=== PATIENT | male | born 1955 | race Two or more races ===

== ENCOUNTER → 2017-12-31 | Outpatient (CLI) | payer OTHER | LOC: M LRY 13:06 | DX: M51.36 Other intervertebral disc degeneration, lumbar region (principal) | CPT/HCPCS: 72114 ==

== ENCOUNTER → 2018-01-20 | Outpatient (REF) | payer OTHER ==
[2018-01-20 15:38] LABS: BASO % 0.5 % (0.0-1.0); EOS # 0.1 10^3/uL (0.0-0.50); EOS % 1.2 % (0.0-3.0); HEMATOCRIT 42.7 % (42.0-52.0); IMMATURE GRANULOCYTE % 0.2 % (0-3.0); LYMPH # 1.8 10^3/uL (1.5-4.5); MEAN CORPUSCULAR HGB CONC 32.8 g/dl (32.0-36.5); MEAN CORPUSCULAR VOLUME 91.4 fl (80.0-96.0); MONO # 0.4 10^3/uL (0.0-0.8); MONO % 10.3 % (0.0-5.0); NEUTROPHILS # 1.8 10^3/uL (1.8-7.7); NEUTROPHILS % 43.8 % (36.0-66.0); PLATELET COUNT, AUTOMATED 213 10^3/uL (150-450); RED BLOOD COUNT 4.67 10^6/uL (4.30-6.10); RED CELL DISTRIBUTION WIDTH 13.2 % (11.5-14.5); WHITE BLOOD COUNT 4.2 10^3/uL (4.0-10.0)
[2018-01-20 15:53] LABS: ALBUMIN/GLOBULIN RATIO 1.29 (1.00-1.93); ALKALINE PHOSPHATASE 66 U/L (45-117); ALT/SGPT 26 U/L (12-78); ANION GAP 7 MEQ/L (8-16); AST/SGOT 19 U/L (7-37); BILIRUBIN,TOTAL 0.8 MG/DL (0.2-1.0); BLOOD UREA NITROGEN 9 MG/DL (7-18); CALCIUM LEVEL 8.8 MG/DL (8.8-10.2); CARBON DIOXIDE LEVEL 28 MEQ/L (21-32); CHLORIDE LEVEL 105 MEQ/L (98-107); CHOLESTEROL LEVEL 234 MG/DL (<200); CHOLESTEROL RISK RATIO 3.656 (<5); CREATININE FOR GFR 0.93 MG/DL (0.70-1.30); GLOMERULAR FILTRATION RATE > 60.0 (>49); GLUCOSE, FASTING 108 MG/DL (70-100); HDL CHOLESTEROL 64 MG/DL (>40); LDL CHOLESTEROL 151.4 MG/DL (<100); NON-HDL-C 170 MG/DL; POTASSIUM SERUM 4.1 MEQ/L (3.5-5.1); PROSTATIC SPECIFIC AG MONITOR 3.51 NG/ML (< 4.0); SODIUM LEVEL 140 MEQ/L (136-145); TOTAL PROTEIN 7.1 GM/DL (6.4-8.2); TRIGLYCERIDES LEVEL 93 MG/DL (<150)
[2018-01-20 16:10] LABS: ESTIMATED AVERAGE GLUCOSE 134 MG/DL (60-110); HEMOGLOBIN A1c 6.3 %
== END ==
LOC: M LAB REF 14:33
DX: Z13.0 Encounter for screening for diseases of the blood and blood-forming organs and certain disorders involving the immune mechanism (principal)

== ENCOUNTER → 2018-09-28 | Outpatient (REF) | payer OTHER ==
[~2018-09-28] MED LIST: ADVI200C5 PO; METF500T13 PO; NEXI20CA PO; PRIL20TA2 PO
[2018-09-28 20:31] LABS: ALT/SGPT 30 U/L (12-78); BILIRUBIN,TOTAL 0.4 MG/DL (0.2-1.0); BLOOD UREA NITROGEN 13 MG/DL (7-18); CALCIUM LEVEL 8.2 MG/DL (8.8-10.2); CARBON DIOXIDE LEVEL 30 MEQ/L (21-32); CHLORIDE LEVEL 105 MEQ/L (98-107); CHOLESTEROL LEVEL 228 MG/DL (<200); CHOLESTEROL RISK RATIO 4.145 (<5); CREATININE FOR GFR 0.85 MG/DL (0.70-1.30); GLOMERULAR FILTRATION RATE > 60.0 (>49); GLUCOSE, FASTING 115 MG/DL (70-100); HDL CHOLESTEROL 55 MG/DL (>40); LDL CHOLESTEROL 144 MG/DL (<100); NON-HDL-C 173 MG/DL; POTASSIUM SERUM 3.8 MEQ/L (3.5-5.1); SODIUM LEVEL 140 MEQ/L (136-145); TOTAL PROTEIN 6.8 GM/DL (6.4-8.2); TRIGLYCERIDES LEVEL 143 MG/DL (<150)
[2018-09-28 20:32] LABS: BASO % 0.4 % (0.0-1.0); EOS # 0.1 10^3/uL (0.0-0.50); EOS % 1.2 % (0.0-3.0); HEMATOCRIT 40.1 % (42.0-52.0); HEMOGLOBIN 13.4 g/dl (13.5-17.5); LYMPH # 1.5 10^3/uL (1.5-4.5); LYMPH % 31.6 % (24.0-44.0); MEAN CORPUSCULAR HEMOGLOBIN 30.6 pg (27.0-33.0); MEAN CORPUSCULAR HGB CONC 33.4 g/dl (32.0-36.5); MEAN CORPUSCULAR VOLUME 91.6 fl (80.0-96.0); MONO # 0.4 10^3/uL (0.0-0.8); MONO % 9.1 % (0.0-5.0); NEUTROPHILS # 2.8 10^3/uL (1.8-7.7); NEUTROPHILS % 57.5 % (36.0-66.0); PLATELET COUNT, AUTOMATED 215 10^3/uL (150-450); RED BLOOD COUNT 4.38 10^6/uL (4.30-6.10); WHITE BLOOD COUNT 4.8 10^3/uL (4.0-10.0)
[2018-09-28 20:45] LABS: HEMOGLOBIN A1c 6.1 %
== END ==
LOC: M LAB REF 19:00
PROVIDERS: ATTEND Nurse Practitioner Family
DX: Z13.9 Encounter for screening, unspecified (principal); R73.03 Prediabetes; R35.1 Nocturia

== ENCOUNTER → 2019-06-23 | Outpatient (CLI) | payer OTHER ==
[2019-06-23 12:00] LABS: ALBUMIN 4.1 GM/DL (3.2-5.2); ALT/SGPT 18 U/L (12-78); BILIRUBIN,TOTAL 0.8 MG/DL (0.2-1.0); BLOOD UREA NITROGEN 16 MG/DL (7-18); CALCIUM LEVEL 9.1 MG/DL (8.8-10.2); CARBON DIOXIDE LEVEL 29 MEQ/L (21-32); CHLORIDE LEVEL 105 MEQ/L (98-107); CHOLESTEROL LEVEL 189 MG/DL (<200); CHOLESTEROL RISK RATIO 2.953 (<5); CREATININE FOR GFR 0.88 MG/DL (0.70-1.30); GLOMERULAR FILTRATION RATE > 60.0 (>49); GLUCOSE, FASTING 99 MG/DL (70-100); HDL CHOLESTEROL 64 MG/DL (>40); LDL CHOLESTEROL 107 MG/DL (<100); NON-HDL-C 125 MG/DL; POTASSIUM SERUM 4.3 MEQ/L (3.5-5.1); SODIUM LEVEL 140 MEQ/L (136-145); TOTAL 25(OH) VITAMIN D 46.7 NG/ML (30.0-100.0); TOTAL PROTEIN 6.8 GM/DL (6.4-8.2); TRIGLYCERIDES LEVEL 89 MG/DL (<150)
[2019-06-23 12:51] LABS: HEMOGLOBIN A1c 5.9 %
== END ==
LOC: M LRY 07:56
PROVIDERS: ATTEND Nurse Practitioner Adult Health
DX: Z13.9 Encounter for screening, unspecified (principal)

== ENCOUNTER → 2020-02-26 | Outpatient (CLI) | payer OTHER ==
[~2020-02-26] MED LIST changes: +CALCTAB38 PO; +CENT1TAB PO; +CVS1CHW13 PO; +CVS5000S2 SL; +MAGN400C2 PO; +NAPR-885 PO; +PERC5TAB12 PO; +RA M200C4 PO; +TRAM50TA2 PO; +XARE10TA PO; +ZOFR4TAB16 PO
[2020-02-26 16:46] LABS: BASO % 0.2 % (0.0-1.0); EOS # 0.1 10^3/uL (0.0-0.5); EOS % 0.9 % (0.0-3.0); HEMATOCRIT 39.3 % (42.0-52.0); HEMOGLOBIN 12.9 g/dl (13.5-17.5); LYMPH % 35.8 % (24.0-44.0); MEAN CORPUSCULAR HEMOGLOBIN 30.5 pg (27.0-33.0); MEAN CORPUSCULAR HGB CONC 32.8 g/dl (32.0-36.5); MEAN CORPUSCULAR VOLUME 92.9 fl (80.0-96.0); MONO # 0.5 10^3/uL (0.0-0.8); MONO % 8.3 % (0.0-5.0); NEUTROPHILS # 3.1 10^3/uL (1.5-8.5); NEUTROPHILS % 54.6 % (36.0-66.0); PLATELET COUNT, AUTOMATED 207 10^3/uL (150-450); RED BLOOD COUNT 4.23 10^6/uL (4.30-6.10); WHITE BLOOD COUNT 5.7 10^3/uL (4.0-10.0)
[2020-02-26 16:49] LABS: APPEARANCE, URINE CLEAR (CLEAR); BACTERIA, URINE AUTO NEGATIVE (NEGATIVE); BILIRUBIN, URINE AUTO NEGATIVE (NEGATIVE); BLOOD, URINE BLOOD NEGATIVE (NEGATIVE); COLOR, URINE STRAW (YELLOW); GLUCOSE, URINE (UA) AUTO NEGATIVE (NEGATIVE); KETONE, URINE AUTO NEGATIVE (NEGATIVE); LEUKOCYTE ESTERASE, URINE AUTO NEGATIVE (NEGATIVE); NITRITE, URINE AUTO NEGATIVE (NEGATIVE); PROTEIN, URINE AUTO NEGATIVE (NEGATIVE); RBC, URINE AUTO 1 /HPF (0-3); SPECIFIC GRAVITY URINE AUTO 1.008 (1.002-1.035); SQUAMOUS EPITHELIAL CELL UR AU 0 /HPF (0-6); UROBILINOGEN, URINE AUTO 0.2 mg/dL (0.0-2.0); WBC, URINE AUTO 0 /HPF (0-3)
--- NOTE | 2020-02-26 16:53 | ECGEPIP ---
[facility] Test Date: 2020-02-26 Pat Name: CHHAYA DYER Department: Room: - Gender: Male Banquet Stewardess: LILLIAN : 1955 Requested By: Francisco Martinez MS-COMMUNICATIONS EXECUTIVE Order Number: [id number] Reading MD: Anne Cardona Measurements Intervals [place] Rate: 59 P: 14 IA: 180 QRS: 55 QRSD: 110 T: 39 QT: 422 QTc: 419 Interpretive Statements SINUS BRADYCARDIA NORMAL EXCEPT RATE NO PRIOR Electronically Signed on 02-26-2020 16:52:53 EDT by Anne Cardona
[2020-02-26 17:18] LABS: ALT/SGPT 19 U/L (12-78); BILIRUBIN,TOTAL 0.3 MG/DL (0.2-1.0); BLOOD UREA NITROGEN 11 MG/DL (7-18); CALCIUM LEVEL 8.9 MG/DL (8.8-10.2); CARBON DIOXIDE LEVEL 29 MEQ/L (21-32); CHLORIDE LEVEL 106 MEQ/L (98-107); CHOLESTEROL LEVEL 187 MG/DL (<200); CHOLESTEROL RISK RATIO 2.791 (<5); GLOMERULAR FILTRATION RATE > 60.0 (>49); GLUCOSE, FASTING 85 MG/DL (70-100); HDL CHOLESTEROL 67 MG/DL (>40); LDL CHOLESTEROL 93 MG/DL (<100); NON-HDL-C 120 MG/DL; POTASSIUM SERUM 4.1 MEQ/L (3.5-5.1); PROSTATIC SPECIFIC AG MONITOR 4.44 NG/ML (< 4.00); SODIUM LEVEL 139 MEQ/L (136-145); TOTAL PROTEIN 6.7 GM/DL (6.4-8.2); TRIGLYCERIDES LEVEL 135 MG/DL (<150)
[2020-02-26 19:20] LABS: HEMOGLOBIN A1c 5.5 %
--- NOTE | 2020-02-27 10:42 | REP ---
REASON: Preoperative evaluation. PRIORS: None. FINDINGS: The superior mediastinal structures are midline. The cardiac silhouette is unremarkable in size, shape, and position. The diaphragmatic surfaces of the lungs are regular, and the costophrenic angles are clear. The pulmonary montilla are clear. The imaged osseous structures are intact. IMPRESSION: There is no acute cardiopulmonary disease. Electronically Signed by Cuate Colon DO 02/27/2020 05:21 P
[2020-03-01 04:09] LABS: CREATININE, URINE 54.5 mg/dL (20.0-300.0); TRAMADOL, URINE Positive (Cutoff=200); TRAMADOL, URINE (GC/MS) 1260 ng/mL (Cutoff=100)
== END ==
LOC: M LAB 15:50
PROVIDERS: ATTEND Nurse Practitioner
DX: Z01.818 Encounter for other preprocedural examination (principal); M25.561 Pain in right knee; Z13.9 Encounter for screening, unspecified; R97.20 Elevated prostate specific antigen [PSA]; R73.03 Prediabetes; E78.5 Hyperlipidemia, unspecified

== ENCOUNTER → 2020-02-29 | Outpatient (CLI) | payer OTHER ==
[2020-02-29 11:12] LABS: INR 1.04; PROTHROMBIN TIME 13.3 SECONDS (11.8-14.0)
== END ==
LOC: M LAB 10:17
PROVIDERS: ATTEND Physician Assistant Medical
DX: M16.11 Unilateral primary osteoarthritis, right hip (principal)

== ENCOUNTER → 2020-03-01 | Outpatient (CLI) | payer OTHER | LOC: M LABSMTC 09:46 | PROVIDERS: ATTEND Anesthesiology | DX: Z01.818 Encounter for other preprocedural examination (principal); Z11.59 Encounter for screening for other viral diseases | CPT/HCPCS: C9803; U0003 ==

== ENCOUNTER 2020-03-04 06:12 | Inpatient (IN) | payer OTHER ==
--- NOTE | 2020-03-01 09:57 | HPE ---
DATE OF ADMISSION: 03/04/2020 ATTENDING PHYSICIAN: Dr. Berny Luis CHIEF COMPLAINT: Right hip pain and stiffness. HISTORY OF PRESENT ILLNESS: This is a pleasant 64-year-old male patient with progressively worsening right hip pain and stiffness that has failed to improve with conservative management. He has continued pain with weightbearing activities and has consented for surgical treatment for his continued symptoms. He has been consented for right total hip arthroplasty by Dr. Berny Luis. ALLERGIES: PENICILLIN. CURRENT MEDICATIONS: - Naproxen 500 mg two twice a day - omeprazole 20 mg one by mouth daily - tramadol 50 mg one by mouth twice a day - metformin 500 mg one daily - 600 mg calcium and D3 one by mouth twice a day - Centrum Silver one by mouth daily - 250 mg magnesium one by mouth twice a day - 3000 mcg B12 one by mouth daily sublingual - 400 mg of milk thistle one by mouth daily - Fiber Well gummies two by mouth daily PAST MEDICAL HISTORY: 1. Prediabetic. 2. Gastroesophageal reflux disease. PAST SURGICAL HISTORY: Tonsillectomy. FAMILY HISTORY: Noncontributory. SOCIAL HISTORY: The patient is a nonsmoker. He does partake in alcohol a few beers daily. REVIEW OF SYSTEMS: He denies fever, chills, chest pain, shortness breath, nausea, vomiting, diarrhea. Denies any recent upper respiratory or urinary tract infection symptoms. Does report pain with weightbearing activities in the right hip. PHYSICAL EXAMINATION: On exam today, vital signs with height 5 feet 7 inches, weight 175, temperature 97.9, blood pressure 126/78, pulse 68, respirations 17. He is normocephalic, atraumatic. Neck is supple and nontender with no lymphadenopathy or jugular venous distention (JVD). Abdomen: Soft and nontender. Heart: S1, S2 auscultated with no murmurs, rubs or gallops. Lungs: Clear to auscultation bilaterally with no wheezes, rales or rhonchi. The right hip shows irritability throughout range of motion. Overlying skin is intact with no rashes. The right lower extremity is well perfused. CHEST X-RAY: No acute cardiopulmonary process. ELECTROCARDIOGRAM (EKG): Sinus bradycardia. LABS: White count 5.7, red blood count 4.23, hemoglobin 12.9, hematocrit 39.3, BUN 11, creatinine 0.9. MEDICAL OPTIMIZATION: This patient reports the medical optimization by Hailey Mari was done, but this is not available today on the chart. IMPRESSION: Symptomatic right hip degenerative changes. PLAN: Consented for right total hip arthroplasty with Dr. Luis. Pending labs ESR, PT/INR, COVID testing and medical optimization by Hailey Mari. The patient has discontinued any blood thinners or anti-inflammatories.
[~2020-03-04] VITALS: Ht 170.2 cm; Wt 78.9 kg
[2020-03-04] VITALS (8 sets, daily range): BP systolic 102–132; BP diastolic 53–87
[~2020-03-04 06:12] MED LIST changes: +LIDOCAINE 1% MDV 20ML VIAL SQ PRN; -PERC5TAB12 PO; -XARE10TA PO; -ZOFR4TAB16 PO
[2020-03-04] MEDS ORDERED: MIDAZOLAM INJ 2MG/2ML VIAL (J2250 PER 1MG) As Ordered ONE (06:41)
[2020-03-04] MEDS ORDERED: fentaNYL 100 MCG/2 ML INJECTION (J3010) As Ordered ONE (06:41)
[2020-03-04] MEDS ORDERED: propofoL 500 MG/50 ML VIAL As Ordered ONE (06:41)
[2020-03-04] MEDS ORDERED: LIDOCAINE 2% 100MG/5ML SDV (FOR ANES.) As Ordered ONE (06:44)
[2020-03-04] MEDS ORDERED: CLINDAMYCIN 900 MG in IV 1 EA IV ONE (07:00)
[2020-03-04] MEDS ORDERED: LR 1,000 ML IV ONE (07:00)
[2020-03-04] MEDS ORDERED: CLINDAMYCIN INJ 900MG/6ML VIAL As Ordered ONE (07:11)
[2020-03-04] MEDS ORDERED: BUPIVACAINE LIPOSOME/PF 1.3% 20ML VIAL (13.3MG/ML)(EXPAREL)(C9290 PER1MG) As Ordered ONE (07:11)
[2020-03-04] MEDS ORDERED: TRANEXAMIC ACID 100 MG/ML 10ML VIAL As Ordered ONE (07:11)
[2020-03-04] MEDS ORDERED: EPINEPHrine INJ 1 MG/ML 1ML AMP As Ordered ONE ×2 (07:11→07:12)
[2020-03-04] MEDS ORDERED: PHENYLephrine HCL 500 MCG/5 ML (100MCG/ML) SYRINGE (J2370) As Ordered ONE ×2 (08:05→08:45)
[2020-03-04] MEDS ORDERED: ePHEDrine SULFATE 25 MG/5 ML(5MG/ML) SYRINGE As Ordered ONE ×2 (08:05→08:28)
[2020-03-04] MEDS ORDERED: GLYCOPYRROLATE INJ 0.2 MG/ML 2 ML VIAL As Ordered ONE (08:10)
[2020-03-04] MEDS ORDERED: ACETAMINOPHEN 1000MG 100ML IV BTL (OFIRMEV) (J0131 PER 10MG) As Ordered ONE (08:15)
[2020-03-04] MEDS ORDERED: ONDANSETRON 4MG/2ML VIAL As Ordered ONE (08:24)
[2020-03-04] MEDS ORDERED: METOCLOPRAMIDE INJ 10MG/2ML VIAL (J2765 PER 1) As Ordered ONE (08:24)
[2020-03-04] MEDS ORDERED: dexameTHASONE 4 MG/ML 1ML VIAL (J1100 PER 1MG) As Ordered ONE (08:26)
[2020-03-04] MEDS ORDERED: propofoL 200 MG/20 ML VIAL As Ordered ONE (08:41)
[2020-03-04] MEDS ORDERED: VASOPRESSIN INJ 20 UNITS/ML VIAL As Ordered ONE (08:50)
[2020-03-04] MEDS ORDERED: fentaNYL 100 MCG/2 ML INJECTION (J3010) IV PRN (09:45)
[2020-03-04] MEDS ORDERED: MORPHINE 4 MG/ML 1ML VIAL/SYRINGE (J2270) IV PRN ×2 (09:45)
[2020-03-04] MEDS ORDERED: METOCLOPRAMIDE INJ 10MG/2ML VIAL (J2765 PER 1) IV PRN (09:45)
[2020-03-04] MEDS ORDERED: PERCOCET 5MG/325MG TAB PO PRN (09:45)
[2020-03-04] MEDS ORDERED: MEPERIDINE INJ 25 MG/ML VIAL (J2175) IV PRN (09:45)
[2020-03-04] MEDS ORDERED: ACETAMINOPHEN TAB 650MG DOSE (2X325MG) PO PRN (09:45)
[2020-03-04] MEDS ORDERED: ONDANSETRON 4MG/2ML VIAL IV PRN ×2 (09:45)
[2020-03-04] MEDS ORDERED: LR 1,000 ML IV SCH ×2 (09:45)
--- NOTE | 2020-03-04 10:03 | IPN ---
DATE: 03/04/2020 Patient seen and examined. He wishes to go ahead with a right total hip arthroplasty. He understands the nature of this, the risks of bleeding, infection, damage to nerves, vessels, persistent pain, wear loosening, dislocation, leg length inequality, blood clots, medical problems, , among others.
--- NOTE | 2020-03-04 11:51 | REP ---
REASON: Status post THR. The femoral and acetabular components of the total hip prosthetic device are well-seated and well-approximated. The alignment is near anatomical. There is expected postoperative soft tissue swelling. There is a lateral skin staple line in place. Electronically Signed by Cuate Colon DO 03/04/2020 02:27 P
[2020-03-04] MEDS ORDERED: GLUCOSE 4GM CHEW TABLET PO PRN (12:00)
[2020-03-04] MEDS ORDERED: GLUCAGON INJ 1MG VIAL SC PRN (12:00)
[2020-03-04] MEDS ORDERED: DEXTROSE 50% 50 ML SYRINGE IV PRN (12:00)
--- NOTE | 2020-03-04 12:05 | HPEPDOC ---
[facility] Medical History & Physical Date of Admission Mar 04, 2020 Date of Service: Mar 04, 2020 Attending Physician: ROSE AHN MD History and Physical Chief complaint: s/p R hip arthroplasty HPI: 64-year-old man with prediabetes, GERD and progressively worsening right hip pain and stiffness 2/2 osteoarthritis who is being admitted post total hip arthroplasty by Dr. Luis. He otherwise reports good health with grossly negative ROS. ROS: 10 point ROS was completely negative and he did not have any R hip pain at this time while supine postop. PAST MEDICAL HISTORY: 1. Prediabetic. 2. Gastroesophageal reflux disease. PAST SURGICAL HISTORY: Tonsillectomy. FAMILY HISTORY: Noncontributory. SOCIAL HISTORY: The patient is a nonsmoker. Drinks a few beers daily. No illicit drugs PHYSICAL EXAMINATION: Vitals: HDS General: well appearing, NAD middle aged man HEENT: NCAT, PERRLA, EOMI, MMM Neck: supple, no jvd or adenopathy Pulm: CTAB without rales, rhonchi or wheezing, breathing comfortably on room air Cardiac: RRR, no mrg Abd: Normoactive, soft, NTND Ext: WWP, no edema Neuro: LLE and bilateral UE FROM with full strength, CN 2-12 intact, speech clear LABS: His preop labs: White count 5.7, hemoglobin 12.9, BUN 11, creatinine 0.9. IMPRESSION: 64 y/o M s/p RTHA doing well. PLAN: s/p RTHA: -Pain management and DVT ppx per ortho team -periop clinda per ortho team -PT/OT preDM: -hold home metformin -SSI, FABG ACHS, hypoglycemia protocol GERD: -continue home omeprazole DVT ppx: xarelto per surgery team Vital Signs Vital Signs Date Time Temp Pulse Resp B/P (MAP) Pulse Ox O2 Delivery O2 Flow Rate FiO2 03/04/20 11:15 98.0 75 18 113/87 (96) 96 Room Air Laboratory Data Labs 24H Laboratory Tests 2 03/04/20 07:39: Bedside Glucose (Misc Panel) 107 03/04/20 10:30: Bedside Glucose (Misc Panel) 147H Home Medications Scheduled Calcium Carb/Vit D3/Minerals (Calcium 600+D Plus Minerals Tb) 1 Each Tablet, 1 TAB PO BID Cyanocobalamin (Vitamin B-12) (Vitamin B12) 5,000 Mcg Tab.rapdis, 3,000 MCG SL DAILY Inulin (Fiber Gummies) 2 Gm Tab.chew, 2 CHW PO DAILY Magnesium Oxide (Magnesium) 400 Mg Capsule, 400 MG PO DAILY Metformin HCl (Metformin HCl) 500 Mg Tab, 500 MG PO DAILY Milk Thistle Seed Extract (Milk Thistle) 200 Mg Capsule, 400 MG PO DAILY Multivit-Min/FA/Lycopen/Lutein (Centrum Silver Tablet) 1 Each Tablet, 1 TAB PO DAILY Omeprazole Magnesium (Prilosec Otc) 20 Mg Tab, 20 MG PO DAILYPRN Scheduled PRN Naproxen (Naproxen) 500 Mg Tablet, 500 MG PO BID PRN for PAIN Tramadol HCl (Tramadol HCl) 50 Mg Tablet, 50 MG PO BIDP PRN for PAIN Allergies Coded Allergies: Penicillins (Verified Allergy, Intermediate, hives, 02/29/20) A-FIB/CHADSVASC A-FIB History Current/History of A-Fib/PAF?: No Current PO Anticoag Therapy: No Age/Risk Factor Scoring CHADSVASC: CHADSVASC Response (Comments) Value Age Risk Factor Age < 65 years old 0 Gender Risk Factor Male 0 Hx of CHF No 0 Hx of HTN No 0 Hx of Stroke/TIA/or VTE No 0 Hx of Diabetes No 0 Hx of Vascular Disease No 0 Total 0 Treatment Treatment ordered: NONE Reason Anticoagulant not given: Not indicated/[id number] ROSE AHN MD Mar 04, 2020 12:05
[2020-03-04] MEDS: OMEPRAZOLE 20 MG CAP PO SCH (12:54)
[2020-03-04] MEDS: PERCOCET 5MG/325MG TAB PO PRN ×3 (13:07→23:59)
[2020-03-04] MEDS: HumaLOG INSULIN (NovoLOG) PER UNIT SC SCH ×2 (13:08→17:13)
--- NOTE | 2020-03-04 14:04 | IPN ---
DATE: 03/04/2020 Postoperative x-ray looks excellent with well seated cup, excellent position. The stem appears possibly slightly undersized, but when I was broaching and reaming I was limited by the AP dimension of the femur. I felt that if I went up a size that I would likely risk fracturing the proximal femur so the size I used was the largest I was able to get in.
[2020-03-04] MEDS: CLINDAMYCIN 900 MG in IV 1 EA IV SCH ×2 (16:15→23:58)
[2020-03-04] MEDS ORDERED: HumaLOG INSULIN (NovoLOG) PER UNIT SC SCH (21:00)
[2020-03-05 02:00] VITALS: BP 100/63
[2020-03-05 06:00] VITALS: BP 101/63
[2020-03-05 06:44] LABS: HEMATOCRIT 32.9 % (42.0-52.0); HEMOGLOBIN 10.9 g/dl (13.5-17.5); MEAN CORPUSCULAR HEMOGLOBIN 30.7 pg (27.0-33.0); MEAN CORPUSCULAR HGB CONC 33.1 g/dl (32.0-36.5); MEAN CORPUSCULAR VOLUME 92.7 fl (80.0-96.0); PLATELET COUNT, AUTOMATED 176 10^3/uL (150-450); RED BLOOD COUNT 3.55 10^6/uL (4.30-6.10); WHITE BLOOD COUNT 7.5 10^3/uL (4.0-10.0)
[2020-03-05] MEDS ORDERED: PERC5TAB12 PO (06:51)
[2020-03-05] MEDS ORDERED: XARE10TA PO (06:51)
[2020-03-05 07:08] LABS: BLOOD UREA NITROGEN 11 MG/DL (7-18); CALCIUM LEVEL 8.2 MG/DL (8.8-10.2); CARBON DIOXIDE LEVEL 28 MEQ/L (21-32); CHLORIDE LEVEL 103 MEQ/L (98-107); CREATININE FOR GFR 0.84 MG/DL (0.70-1.30); GLOMERULAR FILTRATION RATE > 60.0 (>49); GLUCOSE, FASTING 105 MG/DL (70-100); POTASSIUM SERUM 3.7 MEQ/L (3.5-5.1); SODIUM LEVEL 138 MEQ/L (136-145)
[2020-03-05] MEDS ORDERED: ZOFR4TAB16 PO (07:27)
[2020-03-05] MEDS: HumaLOG INSULIN (NovoLOG) PER UNIT SC SCH (07:30)
[2020-03-05] MEDS: OMEPRAZOLE 20 MG CAP PO SCH ×2 (07:46→07:52)
[2020-03-05] MEDS: PERCOCET 5MG/325MG TAB PO PRN (07:47)
[2020-03-05] MEDS ORDERED: MIRALAX *UNIT DOSE* 17GM PACKET PO SCH (09:00)
[2020-03-05] MEDS ORDERED: MOM 30ML SUSPENSION UDC PO SCH (09:00)
[2020-03-05] MEDS ORDERED: RIVAROXABAN 10 MG TAB (XARELTO) PO SCH (18:00)
--- NOTE | 2020-03-05 20:10 | IPNPDOC ---
Subjective Date Seen The patient was seen on 03/05/20. Subjective Chief Complaint/HPI Complains of pain at the right hip on moving as expected and stiffness of the right leg. No fever or chills, no nausea or vomiting or diarrhea. Objective Physical Examination General Exam: Positive: Alert, Cooperative, No Acute Distress Eye Exam: Positive: PERRLA, Conjunctiva & lids normal, EOMI; Negative: Sclera icteric ENT Exam: Positive: Atraumatic, Mucous membr. moist/pink, Pharynx Normal Neck Exam: Positive: Supple; Negative: JVD, thyromegaly Chest Exam: Positive: Clear to auscultation, Normal air movement Heart Exam: Positive: Rate Normal, Regular Rhythm, Normal S1, Normal S2; Negative: Murmurs, Rubs Abdomen Exam: Positive: Normal bowel sounds, Soft; Negative: Tenderness, Hepatospenomegaly Extremity Exam: Negative: Clubbing, Cyanosis, Edema Assessment /Plan Assessment 64-year-old man with Diabetes, GERD and progressively worsening right hip pain and stiffness 2/2 osteoarthritis who was admitted post right total hip arthroplasty by Dr. Luis. s/p RTHA: Pain management and DVT ppx per ortho team PT/OT Diabetes restart metformin on discharge GERD: continue home omeprazole Plan/VTE VTE Prophylaxis Ordered?: Yes VS, I&O, 24H, [place] Vital Signs/I&O Vital Signs Date Time Temp Pulse Resp B/P (MAP) Pulse Ox O2 Delivery O2 Flow Rate FiO2 03/05/20 08:17 16 03/05/20 06:00 99.1 74 101/63 (76) 98 Room Air I&O- Last 24 Hours up to 6 AM 03/05/20 07:00 Intake Total 4265 ml Output Total 1710 ml Balance 2555 ml Laboratory Data 24H LABS Laboratory Tests 2 03/04/20 20:31: Bedside Glucose (Misc Panel) 102 03/05/20 06:13: Nucleated Red Blood Cells % (auto) 0.0, Anion Gap 7L, Glomerular Filtration Rate > 60.0, Calcium Level 8.2L CBC/BMP Laboratory Tests 03/05/20 06:13 DIOR CASTILLO MD Mar 05, 2020 20:10
== END 2020-03-05 11:27 | disposition home or self-care (01) | DRG 301 ==
LOC: M SDC 06:12 → M OR 06:13 → EDSTATUS 07:30 → M MS5PR 11:05
PROVIDERS: ADMIT Orthopaedic Surgery; ATTEND Orthopaedic Surgery
PROC: 0SR902Z Replacement of Right Hip Joint with Metal on Polyethylene Synthetic Substitute, Open Approach (ICD-10-PCS; principal; 2020-03-04 07:30)
DX: M16.11 Unilateral primary osteoarthritis, right hip (principal); K21.9 Gastro-esophageal reflux disease without esophagitis; R73.03 Prediabetes; Z79.84 Long term (current) use of oral hypoglycemic drugs; Z79.1 Long term (current) use of non-steroidal anti-inflammatories (NSAID); Z79.891 Long term (current) use of opiate analgesic; Z79.899 Other long term (current) drug therapy; Z88.0 Allergy status to penicillin

== ENCOUNTER → 2020-06-03 | Outpatient (REF) | payer OTHER ==
[~2020-06-03] MED LIST changes: +CIPRODEX AS; -LIDOCAINE 1% MDV 20ML VIAL SQ PRN; +NEOM1SOL19 AS; +PERC5TAB12 PO; +XARE10TA PO; +ZITHTAB PO; +ZOFR4TAB16 PO
[2020-06-03 14:47] LABS: HEMOGLOBIN A1c 5.5 %
== END ==
LOC: M LAB REF 12:18
PROVIDERS: ATTEND Nurse Practitioner Family
DX: R97.20 Elevated prostate specific antigen [PSA] (principal)
CPT/HCPCS: 83036; G0103

== ENCOUNTER → 2020-06-27 | Outpatient (CLI) | payer OTHER, MEDICAID ==
[~2020-06-27] MED LIST changes: -CIPRODEX AS; -NEOM1SOL19 AS; -ZITHTAB PO
[2020-06-27 17:48] LABS: BASO % 0.4 % (0.0-1.0); EOS # 0.1 10^3/uL (0.0-0.5); EOS % 1.2 % (0.0-3.0); HEMATOCRIT 40.5 % (42.0-52.0); HEMOGLOBIN 12.9 g/dl (13.5-17.5); LYMPH % 35.6 % (24.0-44.0); MEAN CORPUSCULAR HEMOGLOBIN 29.4 pg (27.0-33.0); MEAN CORPUSCULAR HGB CONC 31.9 g/dl (32.0-36.5); MEAN CORPUSCULAR VOLUME 92.3 fl (80.0-96.0); MONO # 0.4 10^3/uL (0.0-0.8); MONO % 7.4 % (0.0-5.0); NEUTROPHILS # 3.1 10^3/uL (1.5-8.5); PLATELET COUNT, AUTOMATED 197 10^3/uL (150-450); RED BLOOD COUNT 4.39 10^6/uL (4.30-6.10); WHITE BLOOD COUNT 5.7 10^3/uL (4.0-10.0)
== END ==
LOC: M LAB 16:45
PROVIDERS: ATTEND Nurse Practitioner Adult Health
DX: D64.9 Anemia, unspecified (principal); R97.20 Elevated prostate specific antigen [PSA]; Z12.11 Encounter for screening for malignant neoplasm of colon
CPT/HCPCS: 36415; 85025; G0103

== ENCOUNTER 2020-07-07 09:19 | Emergency (ER) | payer OTHER, MEDICAID ==
[~2020-07-07] VITALS: Ht 170.2 cm; Wt 83.1 kg
[2020-07-07 09:20] VITALS: BP 138/79
[2020-07-07] MEDS ORDERED: NEOM1SOL19 AS (09:27)
[2020-07-07] MEDS ORDERED: CIPRODEX AS (09:54)
[2020-07-07] MEDS ORDERED: ZITHTAB PO (09:54)
== END 2020-07-07 10:06 | disposition home or self-care (01) ==
LOC: M ED 09:19
DX: H66.92 Otitis media, unspecified, left ear (principal); H60.92 Unspecified otitis externa, left ear; K21.9 Gastro-esophageal reflux disease without esophagitis; Z88.0 Allergy status to penicillin

== ENCOUNTER → 2020-07-15 | Outpatient (REF) | payer OTHER, MEDICAID ==
[~2020-07-15] MED LIST changes: +CIPRODEX AS; +NEOM1SOL19 AS; +ZITHTAB PO
== END ==
LOC: M LAB REF 16:09
PROVIDERS: ATTEND Physician Assistant
DX: H60.509 Unspecified acute noninfective otitis externa, unspecified ear (principal)

== ENCOUNTER → 2020-11-26 | Outpatient (REF) | payer OTHER, MEDICAID ==
[~2020-11-26] MED LIST changes: +CIPR7.5D5 AS; -CIPRODEX AS
[2020-11-26 18:10] LABS: BASO % 0.4 % (0.0-1.0); EOS # 0.1 10^3/uL (0.0-0.5); EOS % 1.5 % (0.0-3.0); HEMATOCRIT 41.1 % (42.0-52.0); HEMOGLOBIN 13.4 g/dl (13.5-17.5); LYMPH # 1.3 10^3/uL (1.5-5.0); LYMPH % 29.2 % (24.0-44.0); MEAN CORPUSCULAR HEMOGLOBIN 30.9 pg (27.0-33.0); MEAN CORPUSCULAR HGB CONC 32.6 g/dl (32.0-36.5); MEAN CORPUSCULAR VOLUME 94.9 fl (80.0-96.0); MONO # 0.4 10^3/uL (0.0-0.8); NEUTROPHILS # 2.7 10^3/uL (1.5-8.5); NEUTROPHILS % 59.7 % (36.0-66.0); PLATELET COUNT, AUTOMATED 175 10^3/uL (150-450); RED BLOOD COUNT 4.33 10^6/uL (4.30-6.10); WHITE BLOOD COUNT 4.6 10^3/uL (4.0-10.0)
[2020-11-26 18:44] LABS: ALT/SGPT 20 U/L (12-78); BILIRUBIN,TOTAL 0.6 MG/DL (0.2-1.0); BLOOD UREA NITROGEN 10 MG/DL (7-18); CALCIUM LEVEL 9.1 MG/DL (8.8-10.2); CARBON DIOXIDE LEVEL 29 MEQ/L (21-32); CHLORIDE LEVEL 104 MEQ/L (98-107); CHOLESTEROL LEVEL 209 MG/DL (<200); CHOLESTEROL RISK RATIO 2.943 (<5); CREATININE FOR GFR 0.84 MG/DL (0.70-1.30); GLOMERULAR FILTRATION RATE > 60.0 (>49); GLUCOSE, FASTING 120 MG/DL (70-100); HDL CHOLESTEROL 71 MG/DL (>40); LDL CHOLESTEROL 106 MG/DL (<100); NON-HDL-C 138 MG/DL; SODIUM LEVEL 140 MEQ/L (136-145); TOTAL PROTEIN 6.7 GM/DL (6.4-8.2); TRIGLYCERIDES LEVEL 159 MG/DL (<150)
[2020-11-28 23:08] LABS: PSA TOTAL 3.8 ng/mL (0.0-4.0)
== END ==
LOC: M LAB REF 16:38
PROVIDERS: ATTEND Physician Assistant
DX: R97.20 Elevated prostate specific antigen [PSA] (principal); Z13.220 Encounter for screening for lipoid disorders; R73.03 Prediabetes; D64.9 Anemia, unspecified

== ENCOUNTER → 2022-10-15 | Outpatient (CLI) | payer OTHER | LOC: M RAD 10:54 | PROVIDERS: ATTEND Family Medicine Addiction Medicine | DX: M25.552 Pain in left hip (principal) ==

== ENCOUNTER → 2024-03-15 | Outpatient (REF) | payer OTHER ==
[2024-03-15 14:15] LABS: ALBUMIN 4.3 G/DL (3.2-5.2); ALKALINE PHOSPHATASE 54 U/L (46-116); ALT/SGPT 19 U/L (7.0-40); AST/SGOT 21 U/L (<34); BILIRUBIN,TOTAL 0.9 MG/DL (0.3-1.2); BLOOD UREA NITROGEN 12 MG/DL (9-23); CALCIUM LEVEL 9.4 MG/DL (8.3-10.6); CARBON DIOXIDE LEVEL 29 MMOL/L (20-31); CHLORIDE LEVEL 104 MMOL/L (98-107); CHOLESTEROL LEVEL 146 MG/DL (<200); CHOLESTEROL RISK RATIO 2.11 (<5); CREATININE FOR GFR 0.86 MG/DL (0.70-1.30); GLOMERULAR FILTRATION RATE > 60.0 (>49); GLUCOSE, FASTING 97 MG/DL (74-106); HDL CHOLESTEROL 68.9 MG/DL (>40); LDL CHOLESTEROL 66.1 MG/DL (<100); NON-HDL-C 77.1 MG/DL; POTASSIUM SERUM 4.5 MMOL/L (3.5-5.1); SODIUM LEVEL 140 MMOL/L (136-145); TOTAL PROTEIN 6.6 G/DL (5.7-8.2); TRIGLYCERIDES LEVEL 55 MG/DL (<150)
[2024-03-15 14:16] LABS: THYROID STIMULATING HORMONE 1.602 uIU/ML (0.55-4.78)
[2024-03-15 14:23] LABS: HEMOGLOBIN A1c 5.6 % (4.0-6.0)
[2024-03-15 14:24] LABS: BASO % 0.2 % (0.0-1.0); EOS # 0.1 10^3/uL (0.0-0.5); EOS % 1.9 % (0.0-3.0); HEMATOCRIT 42.2 % (42.0-52.0); HEMOGLOBIN 13.6 g/dl (13.5-17.5); LYMPH # 1.4 10^3/uL (1.5-5.0); LYMPH % 32.4 % (24.0-44.0); MEAN CORPUSCULAR HEMOGLOBIN 30.6 pg (27.0-33.0); MEAN CORPUSCULAR HGB CONC 32.2 g/dl (32.0-36.5); MEAN CORPUSCULAR VOLUME 94.8 fl (80.0-96.0); MONO # 0.4 10^3/uL (0.0-0.8); MONO % 9.3 % (2.0-8.0); NEUTROPHILS # 2.4 10^3/uL (1.5-8.5); PLATELET COUNT, AUTOMATED 186 10^3/uL (150-450); RED BLOOD COUNT 4.45 10^6/uL (4.30-6.10); WHITE BLOOD COUNT 4.2 10^3/uL (4.0-10.0)
== END ==
LOC: M LAB REF 13:06
PROVIDERS: ATTEND Physician Assistant
DX: D64.9 Anemia, unspecified (principal); E78.5 Hyperlipidemia, unspecified; R73.03 Prediabetes

== ENCOUNTER → 2025-03-19 | Outpatient (REF) | payer OTHER ==
[2025-03-19 13:03] LABS: ALT/SGPT 17 U/L (7.0-40); AST/SGOT 22 U/L (<34); CALCIUM LEVEL 9.4 MG/DL (8.3-10.6); CARBON DIOXIDE LEVEL 30 MMOL/L (20-31); CHLORIDE LEVEL 102 MMOL/L (98-107); CHOLESTEROL LEVEL 147 MG/DL (<200); CHOLESTEROL RISK RATIO 2.43 (<5); CREATININE FOR GFR 0.90 MG/DL (0.70-1.30); GLOMERULAR FILTRATION RATE > 90.0 (>49); LDL CHOLESTEROL 74.0 MG/DL (<100); NON-HDL-C 86.6 MG/DL; POTASSIUM SERUM 4.3 MMOL/L (3.5-5.1); SODIUM LEVEL 142 MMOL/L (136-145); TRIGLYCERIDES LEVEL 63 MG/DL (<150)
[2025-03-19 13:17] LABS: ESTIMATED AVERAGE GLUCOSE 126.0 MG/DL (60-110)
== END ==
LOC: M LAB REF 11:50
PROVIDERS: ATTEND Physician Assistant
DX: E78.5 Hyperlipidemia, unspecified (principal); R73.03 Prediabetes; E83.51 Hypocalcemia